=== PATIENT | female | born 1975 | race Two or more races ===

== ENCOUNTER 2024-02-18 21:45 | Inpatient (IN) | payer MEDICAID, OTHER ==
[~2024-02-18] VITALS: Ht 167.6 cm; Wt 87.9 kg
[2024-02-18 22:53] LABS: Urine Bacteria None Seen /hpf (None Seen)
[2024-02-18 22:56] LABS: Urine Blood Negative /uL (Negative); Urine Clarity Clear (Clear); Urine Color Yellow (Yellow); Urine Mucus FEW (None Seen); Urine Protein, UAD Negative (Negative); Urine Specific Gravity 1.028 (1.001-1.035); Urine Urobilinogen 2 mg/dL (Negative); Urine WBC 2 /hpf (0 - 5)
[2024-02-18 23:16] LABS: Basophils # (auto) 0.1 10 ^3/uL (0-0.2); Eosinophils # (auto) 0.2 10 ^3/uL (0-0.8); Eosinophils % (auto) 2.4 % (0.0-7.0); Hematocrit 41.9 % (36.0-46.0); Hemoglobin 14.4 g/dL (12.2-16.2); Lymphocytes # (auto) 2.4 10 ^3/uL (0.4-5.4); Lymphocytes % (auto) 34.3 % (10.0-50.0); Mean Corpuscular Hemoglobin 32.8 pg (28.0-32.0); Mean Corpuscular Hgb Conc. 34.4 g/dL (32.0-36.0); Mean Corpuscular Volume 95.3 fL (80.0-100.0); Monocytes # (auto) 0.5 10 ^3/uL (0-1.3); Monocytes % (auto) 7.6 % (0.0-12.0); Neutrophils # (auto) 3.8 10 ^3/uL (1.6-8.6); Neutrophils % (auto) 53.7 % (37.0-80.0); Nucleated Red Blood Cells % 0.1 %; Red Cell Distribution Width 14.7 % (11.8-14.3)
[2024-02-18 23:26] LABS: Chloride 109 mmol/L (98-107); Potassium 3.6 mmol/L (3.5-5.1); Sodium 138 mmol/L (136-145)
[2024-02-18 23:27] LABS: Anion Gap 7 (5-15); Carbon Dioxide 22 mmol/L (20-30)
[2024-02-18 23:28] LABS: Calcium 9.4 mg/dL (8.7-10.4)
[2024-02-18 23:33] LABS: BUN/Creatinine Ratio 18.2 (10.0-20.0); Blood Urea Nitrogen 12 mg/dL (9-23); Glucose 89 mg/dL (74-106)
[2024-02-18] MEDS: cloNIDine HCL 0.1 MG TAB PO ONE (23:53)
[2024-02-18] MEDS: KETOROLAC TROMETH 60MG/2ML VIAL IM ONE (23:53)
[2024-02-19] VITALS (9 sets, daily range): BP systolic 125–170; BP diastolic 74–90; PULSE 72–112; RESP 16–20; TEMP 97.6–98.8; O2SAT 92–100
[2024-02-19] MEDS: HYDROcodone-ACET 10/325MG TAB PO ONE (01:33)
[2024-02-19] MEDS ORDERED: HYDROcodone-ACET 5/325MG TAB PO PRN (03:00)
[2024-02-19] MEDS ORDERED: NITROGLYCERIN 0.4 MG SL TAB SL PRN (03:00)
[2024-02-19] MEDS ORDERED: MORPHINE SULFATE INJ 2 MG/ml SYRG IV PRN (03:00)
[2024-02-19] MEDS ORDERED: DOCUSATE SOD 100 MG CAP PO PRN (03:00)
[2024-02-19] MEDS: SODIUM CHLORIDE 0.9% 1,000 ML IV SCH (05:01)
[2024-02-19] MEDS: ONDANSETRON HCL 4 MG/2 ML VIAL IV PRN (05:02)
[2024-02-19] MEDS: hydrALAZINE HCL 20 MG/ML VL IV PRN (05:02)
[2024-02-19 05:38] LABS: Basophils # (auto) 0.1 10 ^3/uL (0-0.2); Basophils % (auto) 1.8 % (0.0-2.0); Eosinophils # (auto) 0.2 10 ^3/uL (0-0.8); Eosinophils % (auto) 3.2 % (0.0-7.0); Hematocrit 39.9 % (36.0-46.0); Hemoglobin 13.9 g/dL (12.2-16.2); Lymphocytes # (auto) 2.3 10 ^3/uL (0.4-5.4); Lymphocytes % (auto) 33.8 % (10.0-50.0); Mean Corpuscular Hemoglobin 32.7 pg (28.0-32.0); Mean Corpuscular Hgb Conc. 34.8 g/dL (32.0-36.0); Mean Corpuscular Volume 94.2 fL (80.0-100.0); Monocytes # (auto) 0.6 10 ^3/uL (0-1.3); Monocytes % (auto) 8.8 % (0.0-12.0); Neutrophils # (auto) 3.6 10 ^3/uL (1.6-8.6); Neutrophils % (auto) 52.4 % (37.0-80.0); Nucleated Red Blood Cells % 0.2 %; Red Blood Cells 4.23 10^6/uL (4.0-5.20); Red Cell Distribution Width 14.6 % (11.8-14.3); White Blood Cell 6.9 10^3/uL (4.4-10.8)
[2024-02-19 05:53] LABS: Alanine Aminotransferase 19 U/L (7-40); Albumin 3.9 g/dL (3.2-4.8); Alkaline Phosphatase 86 U/L (46-116); Anion Gap 7 (5-15); Aspartate Aminotransferase 17 U/L (13-40); Bilirubin, Total 0.4 mg/dL (0.2-1.0); Blood Urea Nitrogen 11 mg/dL (9-23); Calcium 9.1 mg/dL (8.7-10.4); Carbon Dioxide 22 mmol/L (20-30); Chloride 110 mmol/L (98-107); Glucose 90 mg/dL (74-106); Potassium 3.5 mmol/L (3.5-5.1); Sodium 139 mmol/L (136-145); Total Protein 6.6 g/dL (5.7-8.2)
[2024-02-19] MEDS ORDERED: AMLO1TAB22 PO (06:31)
[2024-02-19] MEDS ORDERED: FLUO60TA7 PO (07:45)
[2024-02-19] MEDS ORDERED: TRAZ-227 PO (07:45)
[2024-02-19] MEDS ORDERED: MELO15TA29 PO (07:46)
[2024-02-19] MEDS ORDERED: TIZA4TAB9 PO (07:47)
[2024-02-19] MEDS: PANTOPRAZOLE 40 MG/10 ML VIAL INJ IV SCH (08:53)
[2024-02-19] MEDS: MORPHINE SULFATE INJ 2 MG/ml SYRG IV PRN (09:16)
[2024-02-19] MEDS: ENOXAPARIN SOD 40 MG/0.4 ML SYRINGE SC ONE (13:11)
[2024-02-19] MEDS: LISINOPRIL 5 MG TAB PO ONE (13:12)
[2024-02-19] MEDS: amLODIPine BESYLATE 5 MG TAB PO ONE (13:13)
[2024-02-19] MEDS: TAMSULOSIN HYDROCHLORIDE 0.4 MG CAP PO ONE (13:13)
[2024-02-19] MEDS ORDERED: ENOXAPARIN SOD 30 MG/0.3 ML SYRINGE IV ONE (15:30)
[2024-02-19] MEDS: FLUoxetine HCL 20 MG CAP PO ONE (18:03)
[2024-02-19] MEDS: traZODone HCL 50 MG TAB PO ONE (18:03)
[2024-02-19 18:10] LABS: Urine Bacteria None Seen /hpf (None Seen)
[2024-02-19 18:21] LABS: Urine Blood Negative /uL (Negative); Urine Clarity Clear (Clear); Urine Color Light-Yellow (Yellow); Urine Mucus FEW (None Seen); Urine Protein, UAD Negative (Negative); Urine Specific Gravity 1.018 (1.001-1.035); Urine Urobilinogen Normal (Negative); Urine WBC 2 /hpf (0 - 5)
[2024-02-19 18:30] LABS: Amphetamine Screen, Urine Neg (NEGATIVE); Barbiturate Scree,Urine Neg (NEGATIVE); Benzodiazephine Screen, Urine Neg (NEGATIVE); Cannabinoid Screen, Urine Pos (NEGATIVE); Cocaine Screen, Urine Neg (NEGATIVE); Opiate Scree,Urine Pos (NEGATIVE); Phencyclidine Screen, Urine Neg (NEGATIVE)
[2024-02-20] VITALS (8 sets, daily range): BP systolic 156–166; BP diastolic 72–96; PULSE 62–74; RESP 17–20; TEMP 96.8–98.5; O2SAT 94–99
[2024-02-20 06:51] LABS: Basophils # (auto) 0.1 10 ^3/uL (0-0.2); Eosinophils # (auto) 0.2 10 ^3/uL (0-0.8); Eosinophils % (auto) 2.6 % (0.0-7.0); Hematocrit 40.9 % (36.0-46.0); Hemoglobin 14.2 g/dL (12.2-16.2); Lymphocytes # (auto) 1.7 10 ^3/uL (0.4-5.4); Lymphocytes % (auto) 27.2 % (10.0-50.0); Mean Corpuscular Hemoglobin 32.5 pg (28.0-32.0); Mean Corpuscular Hgb Conc. 34.6 g/dL (32.0-36.0); Mean Corpuscular Volume 93.7 fL (80.0-100.0); Monocytes # (auto) 0.6 10 ^3/uL (0-1.3); Monocytes % (auto) 8.9 % (0.0-12.0); Neutrophils # (auto) 3.8 10 ^3/uL (1.6-8.6); Neutrophils % (auto) 60.3 % (37.0-80.0); Nucleated Red Blood Cells % 0.1 %; Red Blood Cells 4.37 10^6/uL (4.0-5.20); Red Cell Distribution Width 14.3 % (11.8-14.3); White Blood Cell 6.2 10^3/uL (4.4-10.8)
[2024-02-20 07:00] LABS: Alanine Aminotransferase 16 U/L (7-40); Alkaline Phosphatase 84 U/L (46-116); Anion Gap 7 (5-15); BUN/Creatinine Ratio 16.1 (10.0-20.0); Blood Urea Nitrogen 9 mg/dL (9-23); Calcium 9.2 mg/dL (8.7-10.4); Carbon Dioxide 22 mmol/L (20-30); Chloride 109 mmol/L (98-107); Glucose 88 mg/dL (74-106); Potassium 3.4 mmol/L (3.5-5.1); Sodium 138 mmol/L (136-145)
[2024-02-20 07:01] LABS: Albumin 3.9 g/dL (3.2-4.8); Aspartate Aminotransferase 16 U/L (13-40); Bilirubin, Total 0.5 mg/dL (0.2-1.0); Total Protein 6.2 g/dL (5.7-8.2)
[2024-02-20] MEDS: ENOXAPARIN SOD 40 MG/0.4 ML SYRINGE SC SCH (09:29)
[2024-02-20] MEDS: amLODIPine BESYLATE 5 MG TAB PO ONE (09:31)
[2024-02-20] MEDS: FLUoxetine HCL 20 MG CAP PO SCH (09:32)
[2024-02-20] MEDS ORDERED: ENOXAPARIN SOD 30 MG/0.3 ML SYRINGE SC SCH (10:00)
[2024-02-20] MEDS ORDERED: LISINOPRIL 5 MG TAB PO SCH (10:00)
[2024-02-20] MEDS ORDERED: amLODIPine BESYLATE 5 MG TAB PO SCH ×2 (10:00)
[2024-02-20 10:37] LABS: Triglycerides 78 mg/dL (< 150)
[2024-02-20 10:38] LABS: LDL Cholesterol 134 mg/dL (< 100)
[2024-02-20 10:39] LABS: Cholesterol 183 mg/dL (< 200); HDL Cholesterol 44 mg/dL (40-59)
[2024-02-20] MEDS: ASPirin 81 mg TAB PO ONE (12:29)
[2024-02-20] MEDS: ATORVASTATIN 20 MG TAB PO ONE (12:29)
[2024-02-20] MEDS: LISINOPRIL 20 MG TAB PO SCH (12:29)
[2024-02-20] MEDS: POTASSIUM CHL 10 Meq TABLET PO ONE (12:30)
[2024-02-20] MEDS: TAMSULOSIN HYDROCHLORIDE 0.4 MG CAP PO SCH (17:06)
[2024-02-20] MEDS: LABETALOL HCL 200 MG TAB PO ONE (17:08)
[2024-02-20] MEDS: CYANOCOBALAMIN (B-12) 1000 MCG/1 ML VIAL IM ONE (18:15)
[2024-02-20] MEDS: CYANOCOBALAMIN (B-12) 1000 MCG/1 ML VIAL SUBCUT ONE (19:31)
[2024-02-20] MEDS: ACETAMINOPHEN 325 MG TAB PO PRN (19:50)
[2024-02-20] MEDS: ATORVASTATIN 20 MG TAB PO SCH (21:07)
[2024-02-20] MEDS: traZODone HCL 50 MG TAB PO SCH (21:07)
[2024-02-20] MEDS: LABETALOL HCL 200 MG TAB PO SCH (21:08)
[2024-02-21] VITALS (7 sets, daily range): BP systolic 139–164; BP diastolic 77–96; PULSE 63–80; RESP 17–20; TEMP 98–98.6; O2SAT 93–96
[2024-02-21] MEDS ORDERED: TAMS-35 PO (06:27)
[2024-02-21] MEDS ORDERED: AML5T PO (06:27)
[2024-02-21] MEDS ORDERED: CARV-214 PO (06:27)
[2024-02-21] MEDS ORDERED: ATOR20TA50 PO (06:27)
[2024-02-21] MEDS ORDERED: ACET-1882 PO (06:27)
[2024-02-21] MEDS ORDERED: ASPI-325 PO (06:27)
[2024-02-21] MEDS ORDERED: LISI20TA56 PO (06:27)
[2024-02-21 06:48] LABS: Chloride 107 mmol/L (98-107); Potassium 3.1 mmol/L (3.5-5.1); Sodium 137 mmol/L (136-145)
[2024-02-21 06:49] LABS: Anion Gap 6 (5-15); Carbon Dioxide 24 mmol/L (20-30)
[2024-02-21 06:50] LABS: Calcium 9.6 mg/dL (8.7-10.4)
[2024-02-21 06:52] LABS: Basophils # (auto) 0 10 ^3/uL (0-0.2); Basophils % (auto) 0.5 % (0.0-2.0); Eosinophils # (auto) 0.1 10 ^3/uL (0-0.8); Eosinophils % (auto) 1.1 % (0.0-7.0); Hematocrit 43.5 % (36.0-46.0); Hemoglobin 14.7 g/dL (12.2-16.2); Lymphocytes # (auto) 1.8 10 ^3/uL (0.4-5.4); Lymphocytes % (auto) 27.9 % (10.0-50.0); Mean Corpuscular Hemoglobin 32.1 pg (28.0-32.0); Mean Corpuscular Hgb Conc. 33.7 g/dL (32.0-36.0); Mean Corpuscular Volume 95.3 fL (80.0-100.0); Monocytes # (auto) 0.7 10 ^3/uL (0-1.3); Monocytes % (auto) 11.3 % (0.0-12.0); Neutrophils # (auto) 3.8 10 ^3/uL (1.6-8.6); Neutrophils % (auto) 59.2 % (37.0-80.0); Nucleated Red Blood Cells % 0.1 %; Red Blood Cells 4.56 10^6/uL (4.0-5.20); Red Cell Distribution Width 14.2 % (11.8-14.3); White Blood Cell 6.5 10^3/uL (4.4-10.8)
[2024-02-21 06:54] LABS: Glucose 93 mg/dL (74-106)
[2024-02-21 06:55] LABS: BUN/Creatinine Ratio 12.5 (10.0-20.0); Blood Urea Nitrogen 8 mg/dL (9-23)
[2024-02-21] MEDS: CARVEDILOL 3.125 MG TAB PO SCH (09:07)
[2024-02-21] MEDS: ASPirin 81 mg TAB PO SCH (09:09)
[2024-02-21] MEDS: amLODIPine BESYLATE 5 MG TAB PO SCH (09:09)
[2024-02-21] MEDS: POTASSIUM CHL 10 Meq TABLET PO SCH (09:10)
[2024-02-21] MEDS ORDERED: IBUPROFEN 400 MG TAB PO PRN (10:15)
[2024-02-21] MEDS ORDERED: POTASSIUM CHL 20 Meq TABLET PO ONE (15:28)
[2024-02-21] MEDS ORDERED: POTA99TA5 PO (15:54)
[2024-02-21] MEDS: POTASSIUM CHL 20 Meq TABLET PO ONE (16:00)
== END 2024-02-21 16:00 | disposition home or self-care (01) | DRG 465 ==
LOC: ER 21:45 → OVERFLOW 02-19 03:07 → CENTRAL 02-19 05:39
PROVIDERS: ADMIT Internal Medicine; ATTEND Emergency Medicine
DX: N20.0 Calculus of kidney (principal); E55.9 Vitamin D deficiency, unspecified; I16.0 Hypertensive urgency; E66.01 Morbid (severe) obesity due to excess calories; E87.6 Hypokalemia; F32.A Depression, unspecified; I10 Essential (primary) hypertension; F12.10 Cannabis abuse, uncomplicated; Z83.3 Family history of diabetes mellitus; Z82.49 Family history of ischemic heart disease and other diseases of the circulatory system; Z68.31 Body mass index [BMI] 31.0-31.9, adult
CPT/HCPCS: 36415; 70450; 70551; 71045; 74176; 80048; 80053; 80061; 80307; 81001; 82306; 82607; 83036; 84443; 84702; 85025; 93306; 96372; 96374; G0378; J1885; J2405; J2470

== ENCOUNTER 2024-05-17 17:22 | Emergency (ER) | payer MEDICAID ==
[~2024-05-17] VITALS: Ht 160 cm; Wt 85.0 kg
[~2024-05-17 17:22] MED LIST: ACET-1882 PO; AML5T PO; ASPI-325 PO; ATOR20TA50 PO; CARV-214 PO; FLUO60TA7 PO; LISI20TA56 PO; MELO15TA29 PO; POTA99TA5 PO; TAMS-35 PO; TIZA4TAB9 PO; TRAZ-227 PO
[2024-05-17 18:45] LABS: Basophils # (auto) 0.1 10 ^3/uL (0-0.2); Basophils % (auto) 1.1 % (0.0-2.0); Eosinophils # (auto) 0.1 10 ^3/uL (0-0.8); Eosinophils % (auto) 0.7 % (0.0-7.0); Hematocrit 49.7 % (36.0-46.0); Hemoglobin 17.1 g/dL (12.2-16.2); Lymphocytes # (auto) 2.5 10 ^3/uL (0.4-5.4); Lymphocytes % (auto) 26.4 % (10.0-50.0); Mean Corpuscular Hemoglobin 32.2 pg (28.0-32.0); Mean Corpuscular Hgb Conc. 34.3 g/dL (32.0-36.0); Mean Corpuscular Volume 93.9 fL (80.0-100.0); Monocytes # (auto) 0.6 10 ^3/uL (0-1.3); Monocytes % (auto) 6.7 % (0.0-12.0); Neutrophils # (auto) 6.3 10 ^3/uL (1.6-8.6); Neutrophils % (auto) 65.1 % (37.0-80.0); Nucleated Red Blood Cells % 0.1 %; Platelet Count (auto) 247 10^3/uL (140-450); Red Cell Distribution Width 14.5 % (11.8-14.3); White Blood Cell 9.6 10^3/uL (4.4-10.8)
[2024-05-17 19:02] LABS: Alanine Aminotransferase 23 U/L (7-40); Albumin 3.9 g/dL (3.2-4.8); Alkaline Phosphatase 86 U/L (46-116); Anion Gap 6 (5-15); Aspartate Aminotransferase 18 U/L (13-40); BUN/Creatinine Ratio 17.5 (10.0-20.0); Blood Urea Nitrogen 17 mg/dL (9-23); Calcium 9.5 mg/dL (8.7-10.4); Carbon Dioxide 26 mmol/L (20-31); Chloride 106 mmol/L (98-107); Creatine Kinase IFCC 98 U/L (34-145); Glucose 102 mg/dL (74-106); Magnesium 1.8 mg/dL (1.6-2.6); Potassium 4.2 mmol/L (3.5-5.1); Sodium 138 mmol/L (136-145)
[2024-05-17 19:03] LABS: Bilirubin, Total 0.3 mg/dL (0.2-1.0); Total Protein 6.1 g/dL (5.7-8.2)
[2024-05-17 19:54] LABS: Urine Bacteria None Seen /hpf (None Seen)
[2024-05-17 20:06] LABS: Urine Blood Negative /uL (Negative); Urine Clarity Turbid (Clear); Urine Color Yellow (Yellow); Urine Mucus FEW (None Seen); Urine Protein, UAD TRACE (Negative); Urine Specific Gravity 1.022 (1.001-1.035); Urine Urobilinogen Normal (Negative); Urine WBC 4 /hpf (0 - 5); Urine pH 5.5 (5.0-9.0)
[2024-05-17 20:13] LABS: Amphetamine Screen, Urine Neg (NEGATIVE); Barbiturate Scree,Urine Neg (NEGATIVE); Benzodiazephine Screen, Urine Neg (NEGATIVE); Cannabinoid Screen, Urine Pos (NEGATIVE); Cocaine Screen, Urine Neg (NEGATIVE); Opiate Scree,Urine Neg (NEGATIVE); Phencyclidine Screen, Urine Neg (NEGATIVE)
[2024-05-17] MEDS: HYDROcodone-ACET 5/325MG TAB PO ONE (22:14)
[2024-05-17 22:15] VITALS: BP 126/74; PULSE 63; RESP 19; TEMP 98.5; O2SAT 97
== END 2024-05-17 22:42 | disposition home or self-care (01) ==
LOC: ER 17:22
DX: R53.1 Weakness (principal); I11.0 Hypertensive heart disease with heart failure; I50.9 Heart failure, unspecified; F41.9 Anxiety disorder, unspecified; F20.9 Schizophrenia, unspecified; F31.9 Bipolar disorder, unspecified; Z98.890 Other specified postprocedural states; Z79.899 Other long term (current) drug therapy; Z91.013 Allergy to seafood
CPT/HCPCS: 36415; 71045; 80053; 80307; 81001; 82550; 83605; 83735; 84484; 85025; 93005

== ENCOUNTER 2024-06-25 04:19 | Emergency (ER) | payer MEDICAID ==
[~2024-06-25] VITALS: Ht 160 cm; Wt 83.9 kg
--- NOTE | 2024-06-25 04:43 | ED.PDOC ---
History of Present Illness HPI Comments 49 y/o F, with a Hx of CHF, HTN, morbid obesity, nephrolithiasis, , and polysubstance abuse, presents with c/o non-radiating, left-sided flank pain, nausea, and vomiting, today. Patient endorses on sudden and unprovoked onset of symptoms at around [id number], yesterday, evening, that has been progressively worsening since. Patient comments on having similar pain in the past when she had kidney stones. Patient reports no recent stress, injuries, sick contact, travel, spoiled food, or substance use/exposure along with any additional pertinent or relevant Hx. She denies having any abdominal pain, hematemesis, diarrhea, urinary symptoms, fever, chills, or other associated symptoms or modifiers at this time. Chief Complaint: Flank Pain Time Seen by MD: 04:30 Primary Care Provider: TANYA Reviewed Notes: Nurses Notes, Medications, Allergies Allergies: Coded Allergies: Shellfish Allergy (Verified Allergy, Unknown, 02/19/24) Itching Home Meds Active Scripts Hydrocodone-Acetaminophen (Hydrocodone Bitartrate/AC 5-325 mg) 1 Tab Tab, 1 TAB PO Q6HPRN PRN for 7 Days, #28 TAB Prov:ALANA JAIN MD 06/25/24 Tamsulosin Hcl (Flomax) 0.4 Mg Cap, 1 CAP PO DAILY for 14 Days, #30 CAP 11 Refills Prov:ALANA JAIN MD 06/25/24 Potassium Gluconate (Potassium) 595 Mg Tab, 595 MG PO DAILY for 7 Days, #7 TAB Prov:OCTAVIA JAIMES 02/21/24 Tamsulosin Hcl (Flomax) 0.4 Mg Cap, 0.4 MG PO QPM for 30 Days, #30 CAP Prov:OCTAVIA JAIMES 02/21/24 Lisinopril (Lisinopril) 20 Mg Tab, 20 MG PO DAILY for 30 Days, #30 TAB Prov:OCTAVIA JAIMES 02/21/24 Carvedilol (COREG) 3.125 Mg Tab, 6.25 MG PO Q12HR for 30 Days, #120 TAB Prov:OCTAVIA JAIMES 02/21/24 Atorvastatin Calcium (ATORVASTATIN CALCIUM) 20 Mg Tab, 40 MG PO HS for 30 Days, #60 TAB Prov:OCTAVIA JAIMES [facility] 02/21/24 Aspirin (Aspirin Low Dose) 81 Mg Tab, 81 MG PO DAILY for 30 Days, #30 TAB Prov:OCTAVIA JAIMES [facility] 02/21/24 Amlodipine Besylate (NORVASC TABLET) 5 Mg Tb, 10 MG PO DAILY for 30 Days, #60 TAB Prov:OCTAVIA JAIMES [facility] 02/21/24 Acetaminophen (Acetaminophen) 325 Mg Tab, 650 MG PO Q6HP PRN for 10 Days, #80 TAB Prov:OCTAVIA JAIMES [facility] 02/21/24 Reported Medications Tizanidine Hydrochloride (Zanaflex) 4 Mg Tab, 1 TAB PO TID, #90 TAB 02/19/24 Meloxicam (Meloxicam) 15 Mg Tab, 15 MG PO DAILY, TAB 02/19/24 Trazodone Hcl (Trazodone Hcl) 50 Mg Tab, 50 MG PO DAILY, MG 02/19/24 Fluoxetine HCl (Fluoxetine) 60 Mg Tab, 40 MG PO DAILY, TAB 02/19/24 Information Source: Patient Mode of Arrival: Ambulatory Severity: Moderate Timing: Hours Duration: Since onset Prehospital treatment: None Past Medical History PAST MEDICAL HISTORY: CHF, Depression, HTN, Kidney Stones Past Medical History (Other): morbid obesity Surgical History: [employer] History: No Pertinent [employer] History Family History Family History: Unknown Social History Smoker: Cigarettes Alcohol: Denies ETOH Use Drugs: Marijuana Constitutional: denies: chills, diaphoresis, fatigue, fever, malaise, sweats, weakness, others EENTM: denies: blurred vision, double vision, ear bleeding, ear discharge, ear drainage, ear pain, ear ringing, eye pain, eye redness, hearing loss, mouth pain, mouth swelling, nasal discharge, nose bleeding, nose congestion, nose pain, photophobia, tearing, throat pain, throat swelling, voice changes, others Respiratory: denies: cough, hemoptysis, orthopnea, SOB at rest, shortness of breath, SOB with excertion, stridor, wheezing, others Cardiovascular: denies: chest pain, dizzy spells, diaphoresis, Dyspnea on exertion, edema, irregular heart beat, left arm pain, lightheadedness, palpitations, PND, syncope, others Gastrointestinal: reports: nausea, vomiting; denies: abdomen distended, abdominal pain, blood streaked bowels, constipated, diarrhea, dysphagia, difficulty swallowing, hematemesis, melena, poor appetite, poor fluid intake, rectal bleeding, rectal pain, others Genitourinary: reports: flank pain (left-side ); denies: abnormal vagina bleeding, burning, dyspareunia, dysuria, frequency, hematuria, incontinence, pain, , vagina discharge, urgency, others Neurological: denies: dizziness, fainting, headache, left sided numbness, left sided weakness, numbness, paresthesia, pre-existing deficit, right sided numbness, right sided weakness, seizure, speech problems, tingling, tremors, weakness, others Musculoskeletal: denies: back pain, gout, joint pain, joint swelling, muscle pain, muscle stiffness, neck pain, others Integumetry: denies: bruises, change in color, change in hair/nails, dryness, laceration, lesions, lumps, rash, wounds, others Allergic/Immunocompromised: denies: Difficulty Healing, Frequent Infections, Hives, Itching, others Hematologic/Lymphatic: denies: anemia, blood clots, easy bleeding, easy bruising, swollen glands, others Endocrine: denies: excessive hunger, excessive sweating, excessive thirst, excessive urination, flushing, intolerance to cold, intolerance to heat, unexplained weight gain, unexplained weight loss, others Psychiatric: denies: anxiety, bipolar disorder, depression, hopeless, panic disorder, schizophrenia, sleepless, suicidal, others All Other Systems: Reviewed and Negative Physical Exam General Appearance: Moderate Distress HEENT: Normal ENT Inspection, Pharynx Normal, TMs Normal Neck: Full Range of Motion, Non-Tender, Normal, Normal Inspection Respiratory: Chest Non-Tender, Lungs Clear, No Accessory Muscle Use, No Respiratory Distress, Normal Breath Sounds Cardiovascular: No Edema, No JVD, No Murmur, No Gallop, Normal Peripheral Pulses, Regular Rate/Rhythm Breast Exam: Deferred Gastrointestinal: Non Tender, Other ("hurts deep inside but not to touch") Genitalia: Deferred Pelvic: Deferred Rectal: Deferred Extremities: No calf tenderness, Normal capillary refill, Normal inspection, Normal range of motion, Non-tender, No pedal edema Musculoskeletal : Apperance: Normal Neurologic: Alert, physician surgeon II-XII nml as Tested, No Motor Deficits, Normal Affect, Normal Mood, No Sensory Deficits Cerebellar Function: Normal Reflexes: Normal Skin: Dry, Normal Color, Warm Lymphatic: No Adenopathy Was a procedure done? Was a procedure done?: No Differential Dx Considerations may include: nephrolithiasis, pyelonephritis, cystitis, ovarian cysts, ovarian torsion, musculoskeletal pain X-Ray, Labs, Meds, VS Vital Signs Date Time Temp Pulse Resp B/P (MAP) Pulse Ox O2 Delivery O2 Flow Rate FiO2 06/25/24 05:20 74 18 97 Room Air* 0 21 06/25/24 05:20 98.4 74 16 146/91 (109) 97 98.4 06/25/24 04:29 97.5 71 18 179/118 (138) 98 Lab Test 06/25/24 05:40 06/25/24 04:30 Range/Units White Blood Count Pending Red Blood Count Pending Hemoglobin Pending Hematocrit Pending Mean Corpuscular Volume Pending Mean Corpuscular Hemoglobin Pending Mean Corpuscular Hemoglobin Concent Pending Red Cell Distribution Width Pending Platelet Count Pending Mean Platelet Volume Pending Neutrophils (%) (Auto) Pending Lymphocytes (%) (Auto) Pending Monocytes (%) (Auto) Pending Basophils (%) (Auto) Pending Neutrophils # (Auto) Pending Lymphocytes # (Auto) Pending Monocytes # (Auto) Pending Sodium Level Pending Potassium Level Pending Chloride Level Pending Carbon Dioxide Level Pending Anion Gap Pending Blood Urea Nitrogen Pending Creatinine Pending Glomerular Filtration Rate Calc Pending BUN/Creatinine Ratio Pending Serum Glucose Pending Calcium Level Pending Total Bilirubin Pending Aspartate Amino Transferase (AST) Pending Alanine Aminotransferase (ALT) Pending Alkaline Phosphatase Pending Total Protein Pending Albumin Pending Lipase Pending Urine Color Light-yellow Yellow Urine Clarity Clear Clear Urine pH 6.0 5.0-9.0 Urine Specific [place] 1.024 1.001-1.035 Urine Protein Negative Negative Urine Ketones Negative Negative Urine Blood Negative Negative /uL Urine Nitrite Negative Negative Urine Bilirubin Negative Negative Urine Urobilinogen Normal Negative mg/dL Urine Leukocyte Esterase Negative Negative /uL Urine RBC 1 0 - 4 /hpf Urine WBC 2 0 - 5 /hpf Urine Squamous Epithelial Cells Few <5 /hpf Urine Bacteria Few H None Seen /hpf Urine Mucus Few None Seen Urine Glucose Normal Normal mg/dL Current Medications Medications (Trade) Dose Ordered Sig/Kimberly Route Start Time Stop Time Status Last Admin Ondansetron HCl (Zofran Po) 4 mg ONCE ONCE PO 06/25/24 04:45 06/25/24 04:46 DC 06/25/24 05:22 Acetaminophen/ Hydrocodone Bitart ([place] 10/325MG Tab) 1 tab ONCE ONCE PO 06/25/24 04:45 06/25/24 04:46 DC 06/25/24 05:22 [place] [address] Ph: [phone] DIAGNOSTIC IMAGING Diagnostic Imaging Report : [id number] Signed PATIENT: VINEET TORRES ACCT: [id number] UNIT: [id number] : 1975 LOC: ER ROOM / BED: / AGE / SEX: 49 / F ADM STATUS: REG ER SERVICE 4 ORDERING PHYSICIAN: ALANA JAIN MD PROCEDURE(s): ABPL - CT AB PEL WO CON-NO ORAL OR IV REASON: left flank pain ORDER NUMBER(s): [id number], ACCESSION NUMBER(s): [id number] Exam: CT CT AB PEL WO CON-NO ORAL OR IV History: Left flank pain Comparison Study: CT scan of the head performed on 02/19/2024. TECHNIQUE: Multidetector CT of the abdomen and pelvis was performed from lung bases to ischial tuberosities. Imaging was performed without IV contrast using axial images. Coronal and sagittal reformats were obtained from the axial data set by the technologist. Radiation Dose Information: CT Dose: CTDI volume is 18.9 mGy. Dose-length product is 992.21 mGy*cm FINDINGS: Evaluation of solid organs is limited due to lack of intravenous contrast use. Findings: Lung Bases: No acute or significant lung base finding. Normal heart size. No pleural or pericardial effusion. Liver: The liver is normal in size. No focal lesions. Gallbladder and Biliary Tree: Unremarkable Spleen: Unremarkable Pancreas: The pancreas is grossly normal in appearance. Adrenal Glands: Unremarkable Kidneys: 2 mm nonobstructing left distal ureteral calculus. Punctate nonobstructing right nephrolithiasis. Punctate left nephrolithiasis in the lower pole. No hydronephrosis on either side. GI Tract: The stomach is grossly normal in appearance. Small bowel and colon are normal in caliber and distribution. The appendix is not visualized; however, no secondary findings of acute appendicitis identified. Peritoneal cavity: No pneumoperitoneum. No ascites. Lymphadenopathy: No lymphadenopathy. Stable 1.6 cm right para-aortic low attenuating lesion. Abdominal Wall and Mesentery: Unremarkable. Vasculature: The visualized abdominal aorta is normal in size and caliber. Evaluation of abdominal and pelvic vessels is limited due to lack of intravenous contrast. Pelvic Organs: Unremarkable Urinary Bladder: Grossly unremarkable for degree of distention. Musculoskeletal: No aggressive focal bony lesions, acute fractures or dislocation. Soft tissues: Unremarkable IMPRESSION: 1. 2 mm nonobstructing distal left ureteral calculus. Punctate bilateral nonobstructing intrarenal calculi. Radiation optimization: All CT scans at this facility use at least one of these dose optimization techniques: automated exposure control mA and/or kV adjustment per patient size (includes targeted exams where dose is matched to clinical indication) or iterative reconstruction. ATED BY: VESNA RUBIO MD DICTATED DATE/TIME: 06/25/24517 SIGNED BY: VESNA RUBIO MD SIGNED DATE/TIME: 06/25/24517 CC: Time of 1ST Reevaluation: 05:00 Reevaluation 1ST: Unchanged Time of 2ND Reevaluation: 05:50 Reevaluation 2ND: Improved Patient Education/Counseling: Diagnosis, Treatment Family Education/Counseling: No Family Present Additional Information I independently reviewed and interpreted the CT and lab findings Departure 1 Departure Time of Disposition: 05:51 Impression: Primary Impression: Kidney stone Additional Impression: Renal colic Disposition: 01 HOME / SELF CARE / HOMELESS Condition: Stable e-Prescriptions Hydrocodone-Acetaminophen (Hydrocodone Bitartrate/AC 5-325 mg) 1 Tab Tab 1 TAB PO Q6HPRN PRN for 7 Days, #28 TAB Prov: ALANA JAIN MD 06/25/24 Tamsulosin Hcl (Flomax) 0.4 Mg Cap 1 CAP PO DAILY for 14 Days, #30 CAP 11 Refills Prov: ALANA JAIN MD 06/25/24 Discharged With: Self Critical Care Note Critical Care Time?: No Stability Stability form required: No Heart Score Heart Score: Heart Score Response (Comments) Value History N/A 0 EKG N/A 0 Age N/A 0 Risk Factors N/A 0 Troponin N/A 0 Total 0 I personally scribed for ALANA JAIN MD ([email or web address]) on 06/25/24 at 04:43. Electronically submitted by Michael Shields ([email or web address]). I personally scribed for ALANA JAIN MD ([email or web address]) on 06/25/24 at 05:24. Electronically submitted by Michael Shields ([email or web address]). ALANA JAIN MD Jun 25, 2024 04:43
[2024-06-25 05:20] VITALS: BP 146/91; PULSE 74; RESP 18; TEMP 98.4; O2SAT 97
--- NOTE | 2024-06-25 05:21 | DVH ---
Exam: CT CT AB PEL WO CON-NO ORAL OR IV History: Left flank pain Comparison Study: CT scan of the head performed on 02/19/2024. TECHNIQUE: Multidetector CT of the abdomen and pelvis was performed from lung bases to ischial tubero sities. Imaging was performed without IV contrast using axial images. Coronal and sagittal reformats were obtained from the axial data set by the technologist. Radiation Dose Information: CT Dose: CTDI volume is 18.9 mGy. Dose-length product is 992.21 mGy*cm FINDINGS: Evaluation of solid organs is limited due to lack of intravenous contrast use. Findings: Lung Bases: No acute or significant lung base finding. Normal heart size. No pleural or pericardial effusion. Liver: The liver is normal in size. No focal lesions. Gallbladder and Biliary Tree: Unremarkable Spleen: Unremarkable Pancreas: The pancreas is grossly normal in appearance. Adrenal Glands: Unremarkable Kidneys: 2 mm nonobstructing left distal ureteral calculus. Punctate nonobstructing right nephrolithi asis. Punctate left nephrolithiasis in the lower pole. No hydronephrosis on either side. GI Tract: The stomach is grossly normal in appearance. Small bowel and colon are normal in caliber an d distribution. The appendix is not visualized; however, no secondary findings of acute appendicitis identified. Peritoneal cavity: No pneumoperitoneum. No ascites. Lymphadenopathy: No lymphadenopathy. Stable 1.6 cm right para-aortic low attenuating lesion. Abdominal Wall and Mesentery: Unremarkable. Vasculature: The visualized abdominal aorta is normal in size and caliber. Evaluation of abdominal a nd pelvic vessels is limited due to lack of intravenous contrast. Pelvic Organs: Unremarkable Urinary Bladder: Grossly unremarkable for degree of distention. Musculoskeletal: No aggressive focal bony lesions, acute fractures or dislocation. Soft tissues: Unremarkable IMPRESSION: 1. 2 mm nonobstructing distal left ureteral calculus. Punctate bilateral nonobstructing intrarenal ca lculi. Radiation optimization: All CT scans at this facility use at least one of these dose optimization po hniques: automated exposure control mA and/or kV adjustment per patient size (includes targeted exam s where dose is matched to clinical indication) or iterative reconstruction.
[2024-06-25] MEDS: HYDROcodone-ACET 10/325MG TAB PO ONE (05:22)
[2024-06-25] MEDS: ONDANSETRON ODT 4 MG TAB PO ONE (05:22)
[2024-06-25] MEDS ORDERED: HYDR-4902 PO (05:26)
[2024-06-25] MEDS ORDERED: TAMS-35 PO (05:26)
[2024-06-25 05:37] LABS: Urine Bacteria FEW /hpf (None Seen); Urine Blood Negative /uL (Negative); Urine Clarity Clear (Clear); Urine Color Light-Yellow (Yellow); Urine Mucus FEW (None Seen); Urine Protein, UAD Negative (Negative); Urine Specific Gravity 1.024 (1.001-1.035); Urine Urobilinogen Normal (Negative); Urine WBC 2 /hpf (0 - 5)
[2024-06-25 06:08] LABS: Basophils # (auto) 0.1 10 ^3/uL (0-0.2); Basophils % (auto) 0.8 % (0.0-2.0); Eosinophils # (auto) 0.2 10 ^3/uL (0-0.8); Eosinophils % (auto) 2.5 % (0.0-7.0); Hematocrit 42.9 % (36.0-46.0); Hemoglobin 14.9 g/dL (12.2-16.2); Lymphocytes # (auto) 2.2 10 ^3/uL (0.4-5.4); Lymphocytes % (auto) 32.2 % (10.0-50.0); Mean Corpuscular Hemoglobin 32.8 pg (28.0-32.0); Mean Corpuscular Hgb Conc. 34.8 g/dL (32.0-36.0); Monocytes # (auto) 0.6 10 ^3/uL (0-1.3); Monocytes % (auto) 8.5 % (0.0-12.0); Neutrophils # (auto) 3.7 10 ^3/uL (1.6-8.6); Nucleated Red Blood Cells % 0.1 %; Platelet Count (auto) 268 10^3/uL (140-450); Red Blood Cells 4.56 10^6/uL (4.0-5.20); Red Cell Distribution Width 14.2 % (11.8-14.3); White Blood Cell 6.7 10^3/uL (4.4-10.8)
[2024-06-25] MEDS: TAMSULOSIN HYDROCHLORIDE 0.4 MG CAP PO ONE (06:18)
[2024-06-25 06:23] LABS: Alanine Aminotransferase 19 U/L (7-40); Alkaline Phosphatase 87 U/L (46-116); Anion Gap 8 (5-15); Aspartate Aminotransferase 14 U/L (13-40); BUN/Creatinine Ratio 13.8 (10.0-20.0); Bilirubin, Total 0.5 mg/dL (0.2-1.0); Blood Urea Nitrogen 9 mg/dL (9-23); Calcium 9.2 mg/dL (8.7-10.4); Carbon Dioxide 23 mmol/L (20-31); Chloride 111 mmol/L (98-107); Glucose 95 mg/dL (74-106); Lipase 44 U/L (12-53); Potassium 3.7 mmol/L (3.5-5.1); Sodium 142 mmol/L (136-145)
== END 2024-06-25 06:20 | disposition home or self-care (01) ==
LOC: ER 04:19
DX: N20.0 Calculus of kidney (principal); I11.0 Hypertensive heart disease with heart failure; I50.9 Heart failure, unspecified; F32.A Depression, unspecified; E66.01 Morbid (severe) obesity due to excess calories; F17.210 Nicotine dependence, cigarettes, uncomplicated; F15.90 Other stimulant use, unspecified, uncomplicated; Z68.32 Body mass index [BMI] 32.0-32.9, adult; Z98.890 Other specified postprocedural states; Z79.1 Long term (current) use of non-steroidal anti-inflammatories (NSAID); Z79.82 Long term (current) use of aspirin; Z79.899 Other long term (current) drug therapy; Z91.013 Allergy to seafood
CPT/HCPCS: 36415; 74176; 80053; 81001; 83690; 85025; 99284; Q0162

== ENCOUNTER 2024-07-12 11:46 | Emergency (ER) | payer MEDICAID ==
[~2024-07-12] VITALS: Ht 157.5 cm; Wt 82.0 kg
[~2024-07-12 11:46] MED LIST changes: +HYDR-4902 PO
--- NOTE | 2024-07-12 13:20 | DVH ---
EXAM: XY CHEST TWO VIEWS ROUTINE CLINICAL HISTORY: COUGH COMPARISON: None TECHNIQUE: Frontal and lateral view of the chest was obtained FINDINGS: Lines and Tubes: None Lungs: No focal consolidation. Pleura: No effusion. No pneumothorax. Cardiomediastinal contours: Unremarkable Pulmonary vasculature: Within normal limits. Bones: No acute osseous abnormality. IMPRESSION: 1. No acute cardiopulmonary disease. HS:Y
[2024-07-12 13:27] VITALS: BP 163/81; PULSE 80; RESP 20; TEMP 100.1; O2SAT 97
--- NOTE | 2024-07-12 13:31 | ED.PDOC ---
Eye-HPI HPI Comments A 49 YEAR OLD FEMALE PRESENTS TO THE ED WITH COMPLAINT OF FLU-LIKE SYMPTOMS. PATIENT STATES HE HAS BEEN EXPERIENCING A COUGH, CONGESTION, SORE THROAT, BODY ACHES, AND BILATERAL EAR PAIN FOR THE PAST 2 DAYS. PATIENT DENIES FEVER, CHILLS, SHORTNESS OF BREATH, CHEST PAIN, ABDOMINAL PAIN, NAUSEA, VOMITING, HEADACHE, OR OTHER COMPLAINTS. NO OTHER SYMPTOMS OR MODIFYING FACTORS AT THIS TIME. PATIENT IS ALERT, ORIENTED X 4, AND HAS STEADY GAIT. Chief Complaint: Flu like Time Seen by MD: 12:51 Primary Care Provider: TANYA Reviewed Notes: Nurses Notes, Medications, Allergies Allergies: Coded Allergies: Shellfish Allergy (Verified Allergy, Unknown, 02/19/24) Itching Home Meds Active Scripts Acetaminophen (Tylenol 8 Hour Arthritis) 650 Mg Tab, 650 MG PO TID, #30 TAB Prov:CHARLEE VALDEZ 07/12/24 Promethazine-Dm (Promethazine Dm 6.25-15 mg/5Ml) 1 Carla Carla, 5 ML PO TID, #160 ML Prov:CHARLEE VALDEZ 07/12/24 Amoxicillin Trihydrate (Amoxicillin) 875 Mg Tab, 1 TAB PO BID, #20 TAB Prov:CHARLEE VALDEZ 07/12/24 Hydrocodone-Acetaminophen (Hydrocodone Bitartrate/AC 5-325 mg) 1 Tab Tab, 1 TAB PO Q6HPRN PRN for 7 Days, #28 TAB Prov:ALANA JAIN MD 06/25/24 Tamsulosin Hcl (Flomax) 0.4 Mg Cap, 1 CAP PO DAILY for 14 Days, #30 CAP 11 Refills Prov:ALANA JAIN MD 06/25/24 Potassium Gluconate (Potassium) 595 Mg Tab, 595 MG PO DAILY for 7 Days, #7 TAB Prov:OCTAVIA JAIMES 02/21/24 Tamsulosin Hcl (Flomax) 0.4 Mg Cap, 0.4 MG PO QPM for 30 Days, #30 CAP Prov:OCTAVIA JAIMES 02/21/24 Lisinopril (Lisinopril) 20 Mg Tab, 20 MG PO DAILY for 30 Days, #30 TAB Prov:OCTAVIA JAIMES 02/21/24 Carvedilol (COREG) 3.125 Mg Tab, 6.25 MG PO Q12HR for 30 Days, #120 TAB Prov:OCTAVIA JAIMES 02/21/24 Atorvastatin Calcium (ATORVASTATIN CALCIUM) 20 Mg Tab, 40 MG PO HS for 30 Days, #60 TAB Prov:OCTAVIA JAIMES [facility] 02/21/24 Aspirin (Aspirin Low Dose) 81 Mg Tab, 81 MG PO DAILY for 30 Days, #30 TAB Prov:OCTAVIA JAIMES [facility] 02/21/24 Amlodipine Besylate (NORVASC TABLET) 5 Mg Tb, 10 MG PO DAILY for 30 Days, #60 TAB Prov:OCTAVIA JAIMES 02/21/24 Acetaminophen (Acetaminophen) 325 Mg Tab, 650 MG PO Q6HP PRN for 10 Days, #80 TAB Prov:OCTAVIA JAIMES [facility] 02/21/24 Reported Medications Tizanidine Hydrochloride (Zanaflex) 4 Mg Tab, 1 TAB PO TID, #90 TAB 02/19/24 Meloxicam (Meloxicam) 15 Mg Tab, 15 MG PO DAILY, TAB 02/19/24 Trazodone Hcl (Trazodone Hcl) 50 Mg Tab, 50 MG PO DAILY, MG 02/19/24 Fluoxetine HCl (Fluoxetine) 60 Mg Tab, 40 MG PO DAILY, TAB 02/19/24 Information Source: Patient Mode of Arrival: Ambulatory Timing: Days Duration: Since onset, Days Prehospital treatment: None Quality: Pain, Red Lids: Normal Cornea: Normal Pupils: Normal EOM: Normal Fundus: Normal Slit lamp exam: Normal Anterior chamber: Normal Mouth Location: Pharynx Mouth: Normal ENT Ear Exam: Normal, Red, Bulging, Normal Nose: Normal Sinuses: Normal Oropharynx: Tonsillar hypertrophy, Red Onset: Spontaneous Throat Exposed to: None History of: None Last Tetanus: Unknown Modifying factors: Nothing Associated signs and symptoms: Nasal Symptoms, Sore Throat, Ear Pain Past Medical History PAST MEDICAL HISTORY: Depression, HTN, Kidney Stones Surgical History: ONLINE CONTENT EDITOR History: No Pertinent ONLINE CONTENT EDITOR History Family History Family History: Unknown Social History Smoker: Cigarettes Alcohol: Denies ETOH Use Drugs: Marijuana Lives In: Home Constitutional: denies: chills, diaphoresis, fatigue, fever, malaise, sweats, weakness, others EENTM: reports: ear pain, nose congestion, throat pain, throat swelling; denies: blurred vision, double vision, ear bleeding, ear discharge, ear drainage, ear ringing, eye pain, eye redness, hearing loss, mouth pain, mouth swelling, nasal discharge, nose bleeding, nose pain, photophobia, tearing, voice changes, others Respiratory: reports: cough; denies: hemoptysis, orthopnea, SOB at rest, shortness of breath, SOB with excertion, stridor, wheezing, others Cardiovascular: denies: chest pain, dizzy spells, diaphoresis, Dyspnea on exer tion, edema, irregular heart beat, left arm pain, lightheadedness, palpitations, PND, syncope, others Gastrointestinal: denies: abdomen distended, abdominal pain, blood streaked bowels, constipated, diarrhea, dysphagia, difficulty swallowing, hematemesis, melena, nausea, poor appetite, poor fluid intake, rectal bleeding, rectal pain, vomiting, others Genitourinary: denies: abnormal vagina bleeding, burning, dyspareunia, dysuria, flank pain, frequency, hematuria, incontinence, pain, , vagina discharge, urgency, others Neurological: denies: dizziness, fainting, headache, left sided numbness, left sided weakness, numbness, paresthesia, pre-existing deficit, right sided numbness, right sided weakness, seizure, speech problems, tingling, tremors, weakness, others Musculoskeletal: denies: back pain, gout, joint pain, joint swelling, muscle pain, muscle stiffness, neck pain, others Integumetry: denies: bruises, change in color, change in hair/nails, dryness, laceration, lesions, lumps, rash, wounds, others Allergic/Immunocompromised: denies: Difficulty Healing, Frequent Infections, Hives, Itching, others Hematologic/Lymphatic: denies: anemia, blood clots, easy bleeding, easy bruising, swollen glands, others Endocrine: denies: excessive hunger, excessive sweating, excessive thirst, excessive urination, flushing, intolerance to cold, intolerance to heat, unexplained weight gain, unexplained weight loss, others Psychiatric: denies: anxiety, bipolar disorder, depression, hopeless, panic disorder, schizophrenia, sleepless, suicidal, others All Other Systems: Reviewed and Negative Physical Exam General Appearance: No Apparent Distress, Normal HEENT: PERRL/EOMI, Pharyngeal Erythema (TONSILLAR SWELLING, NO EXUDATES. ), TM Abnormal (R) (ERYTHEMA AND DULL OF RIGHT TM, NO DRAINAGE BLOOD CLOTS. ) Neck: Full Range of Motion, Non-Tender, Normal, Normal Inspection Respiratory: Chest Non-Tender, Expiration, No Accessory Muscle Use, No Respiratory Distress, Rhonchi Cardiovascular: No Edema, No JVD, No Murmur, No Gallop, Normal Peripheral Pulses, Regular Rate/Rhythm Breast Exam: Deferred Gastrointestinal: No Organomegaly, Non Tender, No Pulsatile Mass, Normal Bowel Sounds, Soft Genitalia: Deferred Pelvic: Deferred Rectal: Deferred Extremities: No calf tenderness, Normal capillary refill, Normal inspection, Normal range of motion, Non-tender, No pedal edema Musculoskeletal : Apperance: Normal Neurologic: Alert, carpenter repair II-XII nml as Tested, No Motor Deficits, Normal Affect, Normal Mood, No Sensory Deficits Cerebellar Function: Normal Reflexes: Normal Skin: Dry, Normal Color, Warm Peripheral Pulses: 2+ carotid (R), 2+ carotid (L), 2+ Radial (R), 2+ Radial (L) Lymphatic: No Adenopathy Was a procedure done? Was a procedure done?: No EENT DIFF Eye: N/A Ear: Otitis Externa, Otitis Media, Dental, Pharyngitis, Sinusitis Nose: N/A Mouth: N/A Sore Throat: Streptococcal, Viral Pharyngitis, URI X-Ray, Labs, Meds, VS Vital Signs Date Time Temp Pulse Resp B/P (MAP) Pulse Ox O2 Delivery O2 Flow Rate FiO2 07/12/24 13:27 80 20 97 Room Air 07/12/24 13:27 100.1 80 20 163/81 (108) 97 100.1 07/12/24 11:47 100.1 80 20 163/81 (108) 97 EXAM: XY CHEST TWO VIEWS ROUTINE CLINICAL HISTORY: COUGH COMPARISON: None TECHNIQUE: Frontal and lateral view of the chest was obtained FINDINGS: Lines and Tubes: None Lungs: No focal consolidation. Pleura: No effusion. No pneumothorax. Cardiomediastinal contours: Unremarkable Pulmonary vasculature: Within normal limits. Bones: No acute osseous abnormality. IMPRESSION: 1. No acute cardiopulmonary disease. HS:Y ATED BY: KAEL ELIZONDO MD DICTATED DATE/TIME: 07/12/241318 SIGNED BY: KAEL ELIZONDO MD SIGNED DATE/TIME: 07/12/241318 CC: X-Ray, Labs, Meds, VS Comment EXTERNAL MEDICAL RECORDS REVIEWED: [NONE] INDEPENDENT HISTORIANS: [NONE] SOCIAL DETERMINANTS OF HEALTH: [NONE] LABS ORDERED: NONE REVIEWED AND INTERPRETED RESULTS: NONE IMAGING ORDERED: XR CHEST TREATMENTS ORDERED: NONE PROCEDURES PERFORMED: NONE CRITICAL CARE TIME: NONE I HAVE DISCUSSED THE PATIENT WITH THE ATTENDING PHYSICIAN DR. MURRELL AND HE AGREES WITH THE PATIENT'S PLAN OF CARE AND DISPOSITION. BASED ON HISTORY OF PRESENT ILLNESS, AND PHYSICAL EXAM, PATIENT WILL BE DISCHARGED HOME. DISCUSSED PLAN FOR DISCHARGE HOME WITH RX AMOXICILLIN, PHENERGAN DM, AND TYLENOL 650MG. MEDICATION WARNINGS GIVEN. SHARED DECISION MAKING: DISCUSSED WITH PATIENT THAT THEIR WORKUP WAS NORMAL. PATIENT INSTRUCTED TO FOLLOW UP WITH PRIMARY CARE PROVIDER IN 1-2 DAYS FOR RE- EVALUATION OF SYMPTOMS. PATIENT VERBALIZES UNDERSTANDING TO RETURN TO ED FOR NEW OR WORSENING SYMPTOMS OR IF FOLLOW UP WITH PCP CANNOT BE OBTAINED. PATIENT FEELS COMFORTABLE GOING HOME AT THIS TIME. ALL QUESTIONS ADDRESSED AT TIME OF DISCHARGE. Images Reviewed?: Images reviewed and evaluated by me Time of 1ST Reevaluation: 13:40 Reevaluation 1ST: Improved Patient Education/Counseling: Diagnosis, Treatment, Need For Follow Up Family Education/Counseling: Diagnosis, Treatment, Need For Follow Up Medical Screening: No EMC Exist At This Time Departure 1 Departure Time of Disposition: 13:50 Impression: Primary Impression: Acute tonsillitis Qualified Codes: J03.90 - Acute tonsillitis, unspecified Additional Impressions: Otitis media of both ears Qualified Codes: H65.193 - Other acute nonsuppurative otitis media, bilateral Acute bronchitis Qualified Codes: J20.9 - Acute bronchitis, unspecified Disposition: 01 HOME / SELF CARE / HOMELESS Condition: Stable Additional Instructions: FOLLOW-UP WITH PCP IN 1 TO 2 DAYS. TAKE MEDICATIONS PRESCRIBED. RETURN TO ED FOR ANY NEW OR WORSENING SYMPTOMS. e-Prescriptions Acetaminophen (Tylenol 8 Hour Arthritis) 650 Mg Tab 650 MG PO TID, #30 TAB Prov: CHARLEE VALDEZ 07/12/24 Promethazine-Dm (Promethazine Dm 6.25-15 mg/5Ml) 1 Carla Carla 5 ML PO TID, #160 ML Prov: CHARLEE VALDEZ 07/12/24 Amoxicillin Trihydrate (Amoxicillin) 875 Mg Tab 1 TAB PO BID, #20 TAB Prov: CHARLEE VALDEZ 07/12/24 Discharged With: Self Critical Care Note Critical Care Time?: No Stability Stability form required: No I personally scribed for CHARLEE VALDEZ ([email or web address]) on 07/12/24 at 13:31. Electronically submitted by Arturo Faustin ([email or web address]). CHARLEE VALDEZ Jul 12, 2024 13:31
[2024-07-12] MEDS ORDERED: PROM1SOL4 PO (13:35)
[2024-07-12] MEDS ORDERED: AMOX875T3 PO (13:35)
[2024-07-12] MEDS ORDERED: ACET-1080 PO (13:35)
== END 2024-07-12 13:39 | disposition home or self-care (01) ==
LOC: ER 11:46
DX: J20.9 Acute bronchitis, unspecified (principal); J03.90 Acute tonsillitis, unspecified; H66.93 Otitis media, unspecified, bilateral; I10 Essential (primary) hypertension; F32.A Depression, unspecified; F17.210 Nicotine dependence, cigarettes, uncomplicated; F15.90 Other stimulant use, unspecified, uncomplicated; Z98.890 Other specified postprocedural states; Z79.1 Long term (current) use of non-steroidal anti-inflammatories (NSAID); Z79.82 Long term (current) use of aspirin; Z79.899 Other long term (current) drug therapy; Z91.013 Allergy to seafood
CPT/HCPCS: 71046